=== PATIENT | male | born 1970 | race Two or more races ===

== ENCOUNTER 2023-02-14 10:02 | Emergency (ER) | payer OTHER ==
[~2023-02-14] VITALS: Ht 157.5 cm; Wt 63.5 kg
[~2023-02-14 10:02] MED LIST: CARAFATE1 GM PO; CARAFATE1 GM/10 ML PO; PEPCID AC20 MG PO; ZOFRAN8 MG PO
[2023-02-14 10:35] LABS: HEMATOCRIT 40.5 % (39.0-48.0); HEMOGLOBIN 13.8 g/dL (13-16.00); MEAN CELL VOLUME 87.2 fL (80.0-100.00); MEAN CORPUSCULAR HEMOGLOBIN 29.8 pg (27.00-32.0); MEAN CORPUSCULAR HGB CONC 34.2 g/dl (32.0-36.0); PLATELET COUNT 311 K/uL (150-450); RED BLOOD COUNT 4.64 M/uL (4.00-6.00); RED CELL DISTRIBUTION WIDTH 13.3 % (11.5-14.5)
[2023-02-14 10:53] LABS: CREATININE SERUM 0.83 mg/dL (0.70-1.30); GFR 98.07; POTASSIUM 3.25 mEq/L (3.5-5.1)
== END 2023-02-14 20:32 | disposition home or self-care (01) ==
LOC: ER
PROVIDERS: Emergency Medicine
DX: K29.70 Gastritis, unspecified, without bleeding (principal); R10.9 Unspecified abdominal pain; R11.10 Vomiting, unspecified

== ENCOUNTER 2023-03-25 11:10 | Emergency (ER) | payer OTHER ==
[~2023-03-25] VITALS: Ht 157.5 cm; Wt 68.0 kg
[2023-03-25] MEDS ORDERED: 0.9 % SODIUM CHLORIDE 1,000 ML IV STA (11:45)
[2023-03-25] MEDS ORDERED: FAMOtidine 10 MG/ML (4ML VIAL) IV STA (11:45)
[2023-03-25] MEDS ORDERED: ONDANSETRON HCL 2 MG/ML VIAL IV STA (11:45)
[2023-03-25] MEDS ORDERED: HYOSCYAMINE SULFATE 0.125 MG TAB.SUBL SL ONE (12:00)
[2023-03-25 12:45] LABS: HEMATOCRIT 43.1 % (39.0-48.0); HEMOGLOBIN 14.7 g/dL (13-16.00); MEAN CELL VOLUME 89.1 fL (80.0-100.00); MEAN CORPUSCULAR HEMOGLOBIN 30.4 pg (27.00-32.0); MEAN CORPUSCULAR HGB CONC 34.1 g/dl (32.0-36.0); PLATELET COUNT 303 K/uL (150-450); RED BLOOD COUNT 4.84 M/uL (4.00-6.00); RED CELL DISTRIBUTION WIDTH 13.2 % (11.5-14.5)
[2023-03-25] MEDS ORDERED: METOCLOPRAMIDE HCL 10 MG in DEXTROSE 5 % IN WATER 50 ML IV ONE (12:45)
[2023-03-25 13:28] LABS: CALCIUM 9.1 mg/dL (8.5-10.1); CREATININE SERUM 0.9 mg/dL (0.70-1.30); GFR 89.32; POTASSIUM 3.62 mEq/L (3.5-5.1)
[2023-03-25] MEDS ORDERED: MEPERIDINE HCL/PF 25 MG/ML VIAL IV STA (13:41)
[2023-03-25 15:16] LABS: PH,URINE 7.5 (5.0-8.0); URINE APPEARANCE Clear; URINE BILIRRUBIN Negative (NEGATIVE); URINE BLOOD Negative; URINE COLOR Yellow; URINE GLUCOSE Negative (NEGATIVE); URINE LEUKOCYTE Negative; URINE NITRATE Negative; URINE PROTEIN Negative (NEGATIVE); URINE UROBILINOGEN 0.2 E.U./dl
[2023-03-25 15:19] LABS: URINE RBC 12.4 uL (0.0-20.8); URINE WBC 4.7 uL (0.0-23.2)
[2023-03-25 15:20] LABS: URINE BACTERIA 2.5 uL (0.0-1933)
[2023-03-25] MEDS ORDERED: PROMETHAZINE HCL 50 MG/ML AMPUL IM ONE (17:30)
[2023-03-25] MEDS ORDERED: MEPERIDINE HCL/PF 50 MG/ML VIAL IM ONE (17:30)
== END 2023-03-25 21:59 | disposition home or self-care (01) ==
LOC: ER 11:10
PROVIDERS: General Practice
DX: K29.70 Gastritis, unspecified, without bleeding (principal); R10.84 Generalized abdominal pain

== ENCOUNTER 2023-04-04 08:11 | Inpatient (IN) | payer OTHER ==
[~2023-04-04] VITALS: Ht 152.4 cm; Wt 68.0 kg
--- NOTE | 2023-04-04 08:32 | NUR ---
PACIENTE ALERTA Y ORIENTADO X3. SE ENCUENTRA ACOMPANADO AL MOMENTO. PACIENTE PRESENTA VOMITOS (4 APROXIMADAMENTE) Y DOLOR ABDOMINAL DESDE ESTA MADRUGADA. SE ESTIMAN SIGNOS VITALES Y SE UBICA.
[2023-04-04] MEDS ORDERED: MEPERIDINE HCL/PF 50 MG/ML VIAL IM STA (09:25)
[2023-04-04] MEDS ORDERED: FAMOtidine 10 MG/ML (4ML VIAL) IV STA (09:25)
[2023-04-04] MEDS ORDERED: 0.9 % SODIUM CHLORIDE 1,000 ML IV STA (09:25)
[2023-04-04] MEDS ORDERED: ONDANSETRON HCL 2 MG/ML VIAL IV STA (09:26)
--- NOTE | 2023-04-04 09:39 | NUR ---
RN WHITTAKER EDUCA A PTE SOBRE TX A RECIBIR EN EL AREA EL MISMO REFIERE ENTENDER, SE EDUCA SOBRE USO Y EFECTO DE MEDICACION EL MISMO ACEPTA. SE CANALIZA PTE SE COLOCA MEDICACION Y IVFLUID LJ ORDEN MEDICA Y SE REALIZAN MUESTRAS BAJO MEDIDAS ASEPTICAS. SE LAURITA PTE EN ESPERA DE RESULTADOS Y PERSONAL PARA ESTUDIO PENDIENTE.
[2023-04-04 10:02] LABS: HEMATOCRIT 44.8 % (39.0-48.0); HEMOGLOBIN 15.2 g/dL (13-16.00); MEAN CELL VOLUME 87.9 fL (80.0-100.00); MEAN CORPUSCULAR HEMOGLOBIN 29.9 pg (27.00-32.0); MEAN CORPUSCULAR HGB CONC 34.1 g/dl (32.0-36.0); PLATELET COUNT 414 K/uL (150-450); RED BLOOD COUNT 5.09 M/uL (4.00-6.00); RED CELL DISTRIBUTION WIDTH 13.6 % (11.5-14.5)
[2023-04-04 11:49] LABS: ALBUMIN 3.5 gm/dL (3.4-5.0); ALKALINE PHOSPHATASE 56 U/L (50-136); ALT/SGPT 21 U/L (12-78); AMYLASE 65 U/L (25-115); ANION GAP 3 (10.0-20.0); AST/SGOT 11 U/L (15-37); BILIRUBIN TOTAL 0.25 mg/dL (0.3-1.2); BILIRUBIN,CONJUGATED < 0.10 mg/dL (0.0-0.2); BILIRUBIN,UNCONJUGATED 0.15 mg/dL (0.0-0.6); BLOOD UREA NITROGEN 12 mg/dL (7-18); BUN CREA RATIO 15 (7.0-25.0); CARBON DIOXIDE 31 mEq/L (21-32); CHLORIDE 112 mmol/L (98-107); CREATININE SERUM 0.79 mg/dL (0.70-1.30); GFR 103.82; GLUCOSE FASTING 122 mg/dL (65-100); LIPASE 31 U/L (13-75); OSMOLALITY SERUM 286 MOSM/KG (275-295); POTASSIUM 3.36 mEq/L (3.5-5.1); SODIUM 143 mmol/L (136-145); TOTAL PROTEIN 6.9 gm/dL (6.4-8.2)
[2023-04-04 12:24] LABS: PH,URINE 7.5 (5.0-8.0); URINE APPEARANCE Clear; URINE BILIRRUBIN Negative (NEGATIVE); URINE BLOOD Negative; URINE COLOR Yellow; URINE GLUCOSE Negative (NEGATIVE); URINE LEUKOCYTE Negative; URINE NITRATE Negative; URINE PROTEIN Negative (NEGATIVE); URINE UROBILINOGEN 0.2 E.U./dl
[2023-04-04 12:55] LABS: URINE RBC 5.3 uL (0.0-20.8)
[2023-04-04 13:05] LABS: URINE BACTERIA 3.7 uL (0.0-1933); URINE EPITHELIAL CELLS 0.9 uL (0.0-38.8); URINE WBC 1.3 uL (0.0-23.2)
[2023-04-04] MEDS ORDERED: METRONIDAZOLE/SODIUM CHLORIDE 500 MG/100 ML PIGGYBACK IV STA ×2 (14:38→14:39)
[2023-04-04] MEDS ORDERED: CIPROFLOXACIN IN 5 % DEXTROSE 400 MG/200 ML PIGGYBAG IV ONE (15:00)
[2023-04-04] MEDS ORDERED: METHYLPREDNISOLONE SOD SUCC 125 MG VIAL IV ONE (16:30)
[2023-04-04] MEDS ORDERED: KETOROLAC TROMETHAMINE 30 MG VIAL IV ONE (16:30)
[2023-04-04] MEDS ORDERED: METOCLOPRAMIDE HCL 10 MG in 0.9 % SODIUM CHLORIDE 50 ML IV ONE (18:00)
[2023-04-04] MEDS ORDERED: DEXTROSE 5 %-0.45 % SOD CHLORD 1,000 ML IV SCH (21:00)
[2023-04-04] MEDS ORDERED: CIPROFLOXACIN IN 5 % DEXTROSE 200 ML IV SCH (21:07)
[2023-04-04] MEDS ORDERED: METRONIDAZOLE/SODIUM CHLORIDE 100 ML IV SCH (21:08)
[2023-04-04] MEDS ORDERED: SUCRALFATE 1 G TABLET PO SCH (21:09)
[2023-04-04] MEDS ORDERED: hydrALAZINE HCL 20 MG VIAL IV PRN (21:15)
[2023-04-04] MEDS ORDERED: POTASSIUM CHLORIDE 8 MEQ TABLET PO ONE (21:15)
[2023-04-04] MEDS ORDERED: ACETAMINOPHEN 500 MG GEL..CAP PO PRN (21:15)
[2023-04-05] MEDS ORDERED: MORPHINE SULFATE 2 MG/ML CARTRIDGE IV SCH
[2023-04-05] MEDS ORDERED: ONDANSETRON HCL 4 MG in 0.9 % SODIUM CHLORIDE 50 ML IV SCH (01:00)
[2023-04-05 06:54] LABS: HEMATOCRIT 40.2 % (39.0-48.0); HEMOGLOBIN 13.8 g/dL (13-16.00); MEAN CELL VOLUME 87.2 fL (80.0-100.00); MEAN CORPUSCULAR HEMOGLOBIN 30.1 pg (27.00-32.0); MEAN CORPUSCULAR HGB CONC 34.5 g/dl (32.0-36.0); PLATELET COUNT 375 K/uL (150-450); RED BLOOD COUNT 4.61 M/uL (4.00-6.00); RED CELL DISTRIBUTION WIDTH 13.1 % (11.5-14.5)
[2023-04-05 07:18] LABS: INR 1.04; PARTIAL THROMBOPLASTIN TIME 27.5 SECONDS (22.0-34.0); PROTHROMBIN TIME 10.9 SECONDS (9.0-11.5)
[2023-04-05 07:47] LABS: ALBUMIN 3.8 gm/dL (3.4-5.0); ALKALINE PHOSPHATASE 58 U/L (50-136); ALT/SGPT 20 U/L (12-78); ANION GAP 8 (10.0-20.0); AST/SGOT 10 U/L (15-37); BILIRUBIN TOTAL 0.37 mg/dL (0.3-1.2); BILIRUBIN,CONJUGATED < 0.10 mg/dL (0.0-0.2); BILIRUBIN,UNCONJUGATED 0.27 mg/dL (0.0-0.6); BLOOD UREA NITROGEN 10 mg/dL (7-18); BUN CREA RATIO 10 (7.0-25.0); CALCIUM 9.6 mg/dL (8.5-10.1); CARBON DIOXIDE 27 mEq/L (21-32); CHLORIDE 103 mmol/L (98-107); CHOL HDL RATIO 2.6 (0-5.0); CHOLESTEROL 186 mg/dL (0-200); GFR 79.09; GLOBULINA 3.5 G/DL (2.4-3.5); GLUCOSE FASTING 125 mg/dL (65-100); HDL 72 mg/dl (40-60); LDL 104 mg/dl (0-130); LIPASE 26 U/L (13-75); OSMOLALITY SERUM 269 MOSM/KG (275-295); POTASSIUM 3.86 mEq/L (3.5-5.1); SODIUM 134 mmol/L (136-145); TOTAL PROTEIN 7.3 gm/dL (6.4-8.2); TRIGLYCERIDES 50 mg/dL (0-150); VLDL 10 (0-39)
[2023-04-05 07:51] LABS: C-REACTIVE PROTEIN < 0.29 MG/DL (0.00-0.29)
[2023-04-05 08:01] LABS: PH,URINE 5.5 (5.0-8.0); URINE APPEARANCE Clear; URINE BILIRRUBIN Negative (NEGATIVE); URINE BLOOD Negative; URINE COLOR Dark Yellow; URINE GLUCOSE Negative (NEGATIVE); URINE LEUKOCYTE Negative; URINE NITRATE Negative; URINE PROTEIN Trace (NEGATIVE); URINE UROBILINOGEN 0.2 E.U./dl
[2023-04-05 08:02] LABS: URINE BACTERIA 11.3 uL (0.0-1933); URINE EPITHELIAL CELLS 30.1 uL (0.0-38.8); URINE RBC 55.9 uL (0.0-20.8); URINE WBC 36.4 uL (0.0-23.2)
[2023-04-05 08:03] LABS: ERYTHROCYTE SEDIMENTATION RATE 14 mm/hr
[2023-04-05 08:11] LABS: URINE MUCUS MODERATE
[2023-04-05] MEDS ORDERED: PANTOPRAZOLE SODIUM 40 MG in 0.9 % SODIUM CHLORIDE 8 ML IV PUSH SCH (09:00)
[2023-04-05] MEDS ORDERED: ENOXAPARIN SODIUM 40 MG/0.4 ML SYRINGE SUBCUTANEO SCH (09:00)
[2023-04-05] MEDS ORDERED: MEPERIDINE HCL/PF 25 MG/ML VIAL IM SCH (13:00)
[2023-04-06 08:51] LABS: PH,URINE 6.5 (5.0-8.0); URINE APPEARANCE Clear; URINE BILIRRUBIN Negative (NEGATIVE); URINE BLOOD Negative; URINE COLOR Yellow; URINE EPITHELIAL CELLS 1.5 uL (0.0-38.8); URINE GLUCOSE Negative (NEGATIVE); URINE LEUKOCYTE Negative; URINE NITRATE Negative; URINE PROTEIN Negative (NEGATIVE); URINE RBC 5.1 uL (0.0-20.8); URINE UROBILINOGEN 0.2 E.U./dl
[2023-04-06 08:52] LABS: URINE BACTERIA 2.5 uL (0.0-1933); URINE WBC 1.5 uL (0.0-23.2)
[2023-04-09] MEDS ORDERED: DIATRIZOATE MEGLUMINE, SODIUM 30 ML BOTTLE PO ONE (10:00)
[2023-04-10] MEDS ORDERED: AMLODIPINE BESYLATE 2.5 MG TABLET PO SCH (13:14)
[2023-04-10] MEDS ORDERED: AMLODIPINE BESYLATE 2.5 MG TABLET PO STA (13:14)
[2023-04-10] MEDS ORDERED: PEG3350/SOD SULF,BICARB,CL/KCL 4,000 ML GALLON PO ONE (16:00)
[2023-04-11] MEDS ORDERED: MIDAZOLAM HCL 2 MG/2 ML VIAL IV STA (12:18)
[2023-04-11] MEDS ORDERED: FentaNYL CITRATE/PF 50MCG/ML 2ML VIAL IJ STA (12:19)
== END 2023-04-11 18:47 | disposition home or self-care (01) | DRG 392 ==
LOC: ER → MEDJ 21:45
PROVIDERS: General Practice; ADMIT Internal Medicine; ATTEND Internal Medicine
PROC: BW21ZZZ Computerized Tomography (CT Scan) of Abdomen and Pelvis (ICD-10-PCS; principal; 2023-04-04)
PROC: BW21YZZ Computerized Tomography (CT Scan) of Abdomen and Pelvis using Other Contrast (ICD-10-PCS; 2023-04-09)
PROC: 0DBM8ZX Excision of Descending Colon, Via Natural or Artificial Opening Endoscopic, Diagnostic (ICD-10-PCS; 2023-04-11)
PROC: 0DBN8ZX Excision of Sigmoid Colon, Via Natural or Artificial Opening Endoscopic, Diagnostic (ICD-10-PCS; 2023-04-11)
PROC: 0DBP8ZX Excision of Rectum, Via Natural or Artificial Opening Endoscopic, Diagnostic (ICD-10-PCS; 2023-04-11)
DX: K52.89 Other specified noninfective gastroenteritis and colitis (principal); E87.6 Hypokalemia; K29.70 Gastritis, unspecified, without bleeding; I10 Essential (primary) hypertension; R11.11 Vomiting without nausea